=== PATIENT | female | born 1955 | race Caucasian/White ===

== ENCOUNTER → 2016-10-30 | Outpatient (CLI) | payer OTHER | LOC: EXRD 13:30 | DX: M81.0 Age-related osteoporosis without current pathological fracture (principal); M41.9 Scoliosis, unspecified; M85.852 Other specified disorders of bone density and structure, left thigh | CPT/HCPCS: 77080 ==

== ENCOUNTER → 2021-10-16 | Outpatient (CLI) | payer MEDICARE, OTHER ==
[~2021-10-16] MED LIST: ATENOLOL25 MG PO; ATORVASTATIN CA80 MG PO; CALCIUM; FOSAMAX70 MG PO; GABAPENTIN300 MG PO; HYDROCHLOROTHIA25 MG PO; HYDROXYZINE HCL25 MG PO; LISINOPRIL20 MG PO; PAROXETINE HCL30 MG PO; PROTONIX40 MG PO; TRAMADOL HCL50 MG PO
[2021-10-16 09:05] LABS: HEMOGLOBIN 13.2 gm/dl (12.3-15.3); RED BLOOD COUNT 4.36 M/UL (4.00-5.10); WHITE BLOOD COUNT 6.3 K/UL (4.5-11.0)
[2021-10-16 09:29] LABS: BUN/CREATININE RATIO 14 (0-10)
== END ==
LOC: OPSV2 07:59
PROVIDERS: Obstetrics & Gynecology
DX: Z01.818 Encounter for other preprocedural examination (principal); R10.2 Pelvic and perineal pain; I10 Essential (primary) hypertension; R00.1 Bradycardia, unspecified
CPT/HCPCS: 36415; 80053; 85025; 93005

== ENCOUNTER → 2021-10-25 | Day surgery (SDC) | payer MEDICARE, OTHER ==
[~2021-10-25] MED LIST changes: +COLACE100 MG PO; +NAPROSYN EC 50500 MG GT; +PERCOCET 5/325 T1 EA PO
== END | disposition home or self-care (01) ==
LOC: OR 05:22
DX: N84.0 Polyp of corpus uteri (principal); R10.2 Pelvic and perineal pain; K64.4 Residual hemorrhoidal skin tags; N95.9 Unspecified menopausal and perimenopausal disorder; I10 Essential (primary) hypertension; K21.9 Gastro-esophageal reflux disease without esophagitis; E78.5 Hyperlipidemia, unspecified; M19.90 Unspecified osteoarthritis, unspecified site; F41.9 Anxiety disorder, unspecified; F32.A Depression, unspecified; Z79.891 Long term (current) use of opiate analgesic; Z79.899 Other long term (current) drug therapy
CPT/HCPCS: 71045; J0690; J1100; J1885; J2001; J2250; J2405; J2704; J7120